=== PATIENT | female | born 1960 | race Caucasian/White ===

== ENCOUNTER → 2017-05-25 | Outpatient (CLI) | payer BC ==
[~2017-05-25] MED LIST: CEPH500C PO; ESTR1TAB35 PO; ESTR1TAB66 PO; FRSM20T PO; HYDR12.570 GT; HYDR1TAB PO; LOSA-35 PO; LSRT50T PO; MMT17NA NSEACH; OXYC-12 PO; POTA10TA PO
--- NOTE | 2017-05-25 19:10 | Diagnostic Imaging Report ---
INDICATION: Screening. The current study was also evaluated with a Computer Aided Detection (CAD) system. Comparison made with prior examinations of 01/25/16, 12/25/2014, and 10/18/2012. FINDINGS: There is a moderate amount of residual fibroglandular tissue bilaterally. There is no dominant mass, spiculated lesion, or suspicious calcification identified. The skin, nipples, and axillae are unremarkable. IMPRESSION: Negative. ACR BI-RADS Category 1: Negative. Result letter will be mailed to the patient. Note: At least 10% of breast cancer is not imaged by mammography. Dictated by: Dictated on workstation # [id number]
== END ==
LOC: RAD 08:08
PROVIDERS: ATTEND Family Medicine
DX: Z12.31 Encounter for screening mammogram for malignant neoplasm of breast (principal)
CPT/HCPCS: 77067

== ENCOUNTER → 2018-08-24 | Outpatient (CLI) | payer BC ==
[~2018-08-24] MED LIST changes: +ALOG1TAB8; +ATOR40TA PO; +HYDR-4226 PO; +SULF1TAB35 PO
--- NOTE | 2018-08-24 18:29 | Diagnostic Imaging Report ---
INDICATION: Routine screening. COMPARISON is made with prior mammogram from 05/25/2017 and 01/25/2016. TECHNIQUE: 2-D and 3-D bilateral screening mammography was performed with CAD. FINDINGS: Scattered fibronodular densities are identified bilaterally. Both breasts demonstrate a fibronodular parenchymal pattern, similar to prior exams. No new mass or malignant appearing microcalcifications are detected. The axillae are unremarkable. IMPRESSION: BI-RADS category 2. No mammographic features suspicious for malignancy are identified. ACR BI-RADS Category 2: Benign findings. Result letter will be mailed to the patient. Note: At least 10% of breast cancer is not imaged by mammography. Dictated by: Dictated on workstation # [id number]
== END ==
LOC: RAD 13:19
PROVIDERS: ATTEND Nurse Practitioner Family
DX: Z12.31 Encounter for screening mammogram for malignant neoplasm of breast (principal)
CPT/HCPCS: 77067

== ENCOUNTER 2018-09-13 06:32 | Outpatient (CLI) | payer BC ==
[~2018-09-13] VITALS: Ht 170.2 cm; Wt 95.7 kg
[2018-09-13] MEDS ORDERED: ROSU5TAB12 PO (09:55)
[2018-09-13] MEDS ORDERED: ESTR1TAB24 PO (09:55)
[2018-09-13] MEDS ORDERED: LOSA1TAB23 PO (09:55)
[2018-09-13] MEDS ORDERED: FURO40TA4 PO (09:55)
[2018-09-13] MEDS ORDERED: POTA10TA36 PO (09:55)
== END 2018-09-13 10:05 | disposition home or self-care (01) ==
LOC: PREOP 06:32
PROVIDERS: ATTEND Surgery
DX: Z01.818 Encounter for other preprocedural examination (principal)

== ENCOUNTER 2018-09-14 10:07 | Day surgery (SDC) | payer BC ==
[~2018-09-14] VITALS: Ht 170.2 cm; Wt 95.7 kg
[~2018-09-14 10:07] MED LIST changes: +ESTR1TAB24 PO; +FURO40TA4 PO; +LOSA1TAB23 PO; +POTA10TA36 PO; +ROSU5TAB12 PO
--- OUTSIDE RECORDS SUMMARY | 2018-09-14 10:10 | XMS REPORT | Continuity of Care Document ---
Author Author [facility] Organization [facility] Address Unknown Phone Unavailable Allergies Active Description Code Type Severity Reaction Onset Reported/Identified Relationship to Patient Clinical Status Yes Penicillins [id number] Drug Allergy Mild N/A 10/05/2011 Medications There is no data. Problems Date Dx Coded Attending Type Code Diagnosis Diagnosed By 10/05/2011 Ot 848.41 SPRAIN STERNOCLAVICULAR 10/05/2011 Ot 959.2 SHLDR/UPPER ARM INJ NOS 10/05/2011 Ot E000.8 OTHER EXTERNAL CAUSE STATUS 10/05/2011 Ot E849.0 ACCIDENT IN HOME 10/05/2011 Ot E928.9 ACCIDENT NOS 07/25/2013 LURDES DPM, YESSENIA Q Ot 735.0 HALLUX VALGUS 07/25/2013 LURDES DPM, YESSENIA Q Ot 754.52 METATARSUS PRIMUS VARUS 12/25/2014 Ot 611.71 12/25/2014 Ot 753.12 12/25/2014 Ot V76.12 12/25/2014 LURDES DPM, YESSENIA Q Ot 735.0 12/25/2014 LURDES DPM, YESSENIA Q Ot 754.52 12/25/2014 LURDES DPM, YESSENIA Q Ot V72.81 12/25/2014 LURDES DPM, YESSENIA Q Ot V74.8 12/25/2014 Ot 611.71 12/25/2014 Ot 753.12 12/25/2014 Ot V76.12 12/25/2014 LURDES DPM, YESSENIA Q Ot 735.0 12/25/2014 LURDES DPM, YESSENIA Q Ot 754.52 12/25/2014 LURDES DPM, YESSENIA Q Ot V72.81 12/25/2014 LURDES DPM, YESSENIA Q Ot V74.8 01/05/2015 FABI BELTRAN Ot V76.12 01/22/2015 SOFIA GRIER DO Ot 610.0 01/25/2016 Ot 611.71 MASTODYNIA 01/25/2016 Ot 753.12 POLYCYSTIC KIDNEY, UNSPECIFIED TYPE 01/25/2016 Ot V76.12 OTH SCREEN MAMMO-MALIGN NEOPLASM OF ADRIANNA 01/25/2016 LURDES DPM, YESSENIA Q Ot 735.0 HALLUX VALGUS 01/25/2016 LURDES DPM, YESSENIA Q Ot 754.52 METATARSUS PRIMUS VARUS 01/25/2016 LURDES DPM, YESSENIA Q Ot V72.81 [id number] CARDIOVASCULAR 01/25/2016 LURDES DPM, YESSENIA Q Ot V74.8 SCREEN-BACTERIAL DIS NEC 01/25/2016 FABI BELTRAN LIGHT OUT EXAMINER Ot V76.12 OTH SCREEN MAMMO-MALIGN NEOPLASM OF ADRIANNA 01/25/2016 SOFIA GRIER DO Ot 610.0 SOLITARY CYST OF BREAST 01/28/2016 SOFIA GRIER DO Ot Z12.31 ENCNTR SCREEN MAMMOGRAM FOR MALIGNANT NE 02/06/2016 SOFIA GRIER DO S Ot Z12.31 ENCNTR SCREEN MAMMOGRAM FOR MALIGNANT NE 02/07/2016 FABI BELTRANP Ot R92.8 OTH ABN AND INCONCLUSIVE FINDINGS ON DX 02/26/2016 RINA BELTRANSA Garcia LIGHT OUT EXAMINER Ot R92.8 OTH ABN AND INCONCLUSIVE FINDINGS ON DX 07/16/2016 SOFIA GRIER DO Ot N28.1 CYST OF KIDNEY, ACQUIRED 07/17/2016 SOFIA GRIER DO S Ot N28.1 CYST OF KIDNEY, ACQUIRED 07/17/2016 Ot 611.71 MASTODYNIA 07/17/2016 Ot 753.12 POLYCYSTIC KIDNEY, UNSPECIFIED TYPE 07/17/2016 Ot V76.12 OTH SCREEN MAMMO-MALIGN NEOPLASM OF ADRIANNA 07/17/2016 LURDES DPM, YESSENIA Q Ot 735.0 HALLUX VALGUS 07/17/2016 LURDES DPM, YESSENIA Q Ot 754.52 METATARSUS PRIMUS VARUS 07/17/2016 LURDES DPM, YESSENIA Q Ot V72.81 [id number] CARDIOVASCULAR 07/17/2016 LURDES DPM, YESSENIA Q Ot V74.8 SCREEN-BACTERIAL DIS NEC 07/17/2016 FABI BELTRAN LIGHT OUT EXAMINER Ot V76.12 OTH SCREEN MAMMO-MALIGN NEOPLASM OF ADRIANNA 07/17/2016 SCHUYLER GRIER DOLINE S Ot 610.0 SOLITARY CYST OF BREAST 07/17/2016 CHERRIE EWING SOFIA S Ot Z12.31 ENCNTR SCREEN MAMMOGRAM FOR MALIGNANT NE 07/17/2016 THOMASJUSTOBAMBICAMILLAFABI LIGHT OUT EXAMINER Ot R92.8 OTH ABN AND INCONCLUSIVE FINDINGS ON DX 07/17/2016 SCHUYLER GRIER DOLINE S Ot N28.1 CYST OF KIDNEY, ACQUIRED 07/22/2016 CHERRIE EWING SOFIA S Ot N28.1 CYST OF KIDNEY, ACQUIRED 07/30/2016 CHERRIE EWING SOFIA S Ot N28.1 CYST OF KIDNEY, ACQUIRED 05/25/2017 Ot V76.12 OTH SCREEN MAMMO-MALIGN NEOPLASM OF ADRIANNA 05/25/2017 LURDES DPM, YESSENIA Q Ot 735.0 HALLUX VALGUS 05/25/2017 LURDES DPM, YESSENIA Q Ot 754.52 METATARSUS PRIMUS VARUS 05/25/2017 LURDES DPM, YESSENIA Q Ot V72.81 [id number] CARDIOVASCULAR 05/25/2017 LURDES DPM, YESSENIA Q Ot V74.8 SCREEN-BACTERIAL DIS NEC 05/25/2017 RUBY FABI Garcia LIGHT OUT EXAMINER Ot V76.12 OTH SCREEN MAMMO-MALIGN NEOPLASM OF ADRIANNA 05/25/2017 SCHUYLER GRIER DOLINE S Ot 610.0 SOLITARY CYST OF BREAST 05/25/2017 NOALAUROAGUSTIN SOFIA S Ot Z12.31 ENCNTR SCREEN MAMMOGRAM FOR MALIGNANT NE 05/25/2017 RUBY FABI Garcia LIGHT OUT EXAMINER Ot R92.8 OTH ABN AND INCONCLUSIVE FINDINGS ON DX 05/25/2017 AKOSUA RGIER DOQUELINE S Ot N28.1 CYST OF KIDNEY, ACQUIRED 05/26/2017 CHERRIE AKOSUASOFIA S Ot Z12.31 ENCNTR SCREEN MAMMOGRAM FOR MALIGNANT NE 06/03/2017 SCHUYLER GRIER DOLINE S Ot Z12.31 ENCNTR SCREEN MAMMOGRAM FOR MALIGNANT NE 06/10/2017 SOFIA GRIER DO Ot Z12.31 ENCNTR SCREEN MAMMOGRAM FOR MALIGNANT NE 05/23/2018 ELVA SONG APRN Ot M79.605 PAIN IN LEFT LEG 05/23/2018 ELVA SONG APRN Ot N39.0 URINARY TRACT INFECTION, SITE NOT SPECIF 05/23/2018 ELVA SONG APRN Ot S82.302A UNSP FRACTURE OF LOWER END OF LEFT TIBIA 05/23/2018 ELVA SONG APRN Ot S92.425A NONDISP FX OF DISTAL PHALANX OF LEFT GRE 05/23/2018 ELVA SONG APRN Ot W01.0XXA FALL SAME LEV FROM SLIP/TRIP W/O STRIKE 05/23/2018 ELVA SONG APRN Ot Y92.[address] [facility] 05/23/2018 ELVA SONG APRN Ot Z88.0 ALLERGY STATUS TO PENICILLIN 05/26/2018 ELVA SONG APRN Ot M79.605 PAIN IN LEFT LEG 05/26/2018 ELVA SONG APRN Ot N39.0 URINARY TRACT INFECTION, SITE NOT SPECIF 05/26/2018 ELVA SONG APRN Ot S82.302A UNSP FRACTURE OF LOWER END OF LEFT TIBIA 05/26/2018 ELVA SONG APRN Ot S92.425A NONDISP FX OF DISTAL PHALANX OF LEFT GRE 05/26/2018 ELVA SONG APRN Ot W01.0XXA FALL SAME LEV FROM SLIP/TRIP W/O STRIKE 05/26/2018 ELVA SONG APRN Ot Y92.[address] IN [facility] 05/26/2018 ELVA SONG APRN Ot Z88.0 ALLERGY STATUS TO PENICILLIN 08/25/2018 CECILIA NDIAYE APRN Ot Z12.31 ENCNTR SCREEN MAMMOGRAM FOR MALIGNANT NE Procedures There is no data. Results Test Result Range Complete urinalysis with reflex to culture - 05/23/18 13:10 Urine color determination YELLOW NRG Urine clarity determination CLEAR NRG Urine pH measurement by test strip 5 5-9 Specific gravity of urine by test strip 1.020 1.016- 1.022 Urine protein assay by test strip, semi-quantitative 1+ NEGATIVE Urine glucose detection by automated test strip NEGATIVE NEGATIVE Erythrocytes detection in urine sediment by light microscopy 1+ NEGATIVE Urine ketones detection by automated test strip NEGATIVE NEGATIVE Urine nitrite detection by test strip POSITIVE NEGATIVE Urine total bilirubin detection by test strip NEGATIVE NEGATIVE Urine urobilinogen measurement by automated test strip (mass/volume) NORMAL NORMAL Urine leukocyte esterase detection by dipstick 2+ NEGATIVE Automated urine sediment erythrocyte count by microscopy (number/high power field) NONE NRG Automated urine sediment leukocyte count by microscopy (number/high power field ) [HPF] NRG Bacteria detection in urine sediment by light microscopy LARGE NRG Squamous epithelial cells detection in urine sediment by light microscopy 25-50 NRG Crystals detection in urine sediment by light microscopy NONE NRG Casts detection in urine sediment by light microscopy NONE NRG Mucus detection in urine sediment by light microscopy NEGATIVE NRG Complete urinalysis with reflex to culture YES NRG Bacterial urine culture - 05/23/18 13:10 Bacterial urine culture [id number] NRG COLONY COUNT >100,000/ML NRG RML Sensitivity Panel - 05/23/18 13:10 Gentamicin susceptibility test by minimum inhibitory concentration < = NRG Trimethoprim/sulfamethoxazole susceptibility test by minimum inhibitoryconcentration > NRG Levofloxacin susceptibility test by minimum inhibitory concentration <= NRG Ampicillin susceptibility test by minimum inhibitory concentration < = NRG Cefazolin susceptibility test by minimum inhibitory concentration < = NRG Ceftriaxone susceptibility test by minimum inhibitory concentration <= NRG Ciprofloxacin susceptibility test by minimum inhibitory concentration <= NRG Meropenem susceptibility test by minimum inhibitory concentration < = NRG Nitrofurantoin susceptibility test by minimum inhibitory concentration <= NRG Amoxicillin and clavulanate potassium susc [facility] <= NRG Encounters ACCT No. Visit Date/Time Discharge Status Pt. Type Provider Facility Loc./Unit Complaint [id number] 08/24/2018 13:19:00 08/24/2018 23:59:59 CLS Outpatient CECILIA NDIAYE REPAIR MECHANIC [facility] RAD ANNUAL SCREENING [id number] 05/23/2018 12:52:00 05/23/2018 17:10:00 DIS Emergency ELVA SONG REPAIR MECHANIC [facility] ER FALL/LEG PAIN [id number] 05/25/2017 08:08:00 05/25/2017 23:59:59 CLS Outpatient SOFIA GRIER DO [facility] RAD SCREENING [id number] 07/16/2016 12:11:00 07/16/2016 23:59:59 CLS Outpatient SOFIA GRIER DO S [facility] RAD BILAT RENAL CYSTS [id number] 02/06/2016 07:49:00 02/06/2016 23:59:59 CLS Outpatient FABI BELTRAN LIGHT OUT EXAMINER [facility] RAD L BREAST ASYMMETRY [id number] 01/25/2016 10:15:00 01/25/2016 23:59:59 CLS Outpatient SOFIA GRIER DO S [facility] RAD SCREENING [id number] 01/04/2015 08:51:00 01/04/2015 23:59:59 CLS Outpatient SOFIA GRIER DO S [facility] RAD LEFT BREAST ASYMETRY [id number] 12/25/2014 10:13:00 12/25/2014 23:59:59 CLS Outpatient FABI BELTRAN LIGHT OUT EXAMINER [facility] RAD SCREENING [id number] 07/25/2013 07:59:00 07/25/2013 15:30:00 DIS Outpatient LURDES DPM, YESSENIA Q [facility] SDC RIGHT BUNION [id number] 07/20/2013 10:47:00 07/20/2013 23:59:59 CLS Outpatient LURDES DPM, YESSENIA Q [facility] PREOP BUNION RIGHT FOOT [id number] 07/11/2013 08:36:00 07/11/2013 23:59:59 CLS Outpatient [id number] 09/14/2018 11:00:00 PEN Preadmit LAMB DO, BLANCA D [facility] ENDO SCREENING [id number] 10/18/2012 11:24:00 Document Registration [id number] 10/05/2011 04:15:00 Document Registration [id number] 09/15/2011 15:30:00 Document Registration [id number] 03/11/2011 14:00:00 Document Registration [id number] 01/04/2015 08:52:06 ACT Document Registration 01/201809/12/2018 06:07:22 ACT Outpatient Orender, Sofia S.
[2018-09-14] MEDS ORDERED: LACTATED RINGERS 1,000 ML IV STA (10:19)
[2018-09-14] MEDS ORDERED: LACTATED RINGERS 1,000 ML IV ONE (10:20)
--- NOTE | 2018-09-14 10:23 | Progress Note-Pre Operative ---
Pre-Operative Progress Note H&P Reviewed The H&P was reviewed, patient examined and no changes noted. Date Seen by Provider: Sep 14, 2018 Time Seen by Provider: 10: Date H&P Reviewed: Sep 14, 2018 Time H&P Reviewed: : Pre-Operative Diagnosis: screening colonoscopy BLANCA LAMB DO Sep 14, 2018 10:23
[2018-09-14 10:30] VITALS: BP 122/82
[2018-09-14] MEDS ORDERED: MIDAZOLAM 2 MG/2 ML (VERSED) VIAL ONE (11:15)
[2018-09-14] MEDS ORDERED: PROPOFOL INJECTION 50 ML IV ONE (11:15)
--- NOTE | 2018-09-14 11:49 | Progress Note-Post Operative ---
Post-Operative Progess Note Surgeon (s)/Greaser Operator (s) Surgeon BLANCA LAMB DO Greaser Operator: na Pre-Operative Diagnosis screening colonoscopy Post-Operative Diagnosis sigmoid polyp, diverticulosis Procedure & Operative Findings Date of Procedure 09/14/18 Procedure Performed/Findings colonoscopy c hot bx polypectomy x 1 Anesthesia Type per hair or beauty salon manager Estimated Blood Loss Estimated blood loss (mL): none Specimens/Packing Specimens Removed sigmoid polyp BLANCA LAMB DO Sep 14, 2018 11:49
--- NOTE | 2018-09-14 11:51 | Discharge Inst-Simple/Standard ---
Discharge Inst-Standard Patient Instructions/Follow Up Plan of Care/Instructions/FU: 2 weeks sandra Activity as Tolerated: Yes Discharge Diet: Regular Diet (high fiber) BLANCA LAMB DO Sep 14, 2018 11:51
[2018-09-14 11:55] VITALS: BP 96/59
[2018-09-14 12:25] VITALS: BP 97/75
[2018-09-14 12:30] VITALS: BP 97/75
--- NOTE | 2018-09-14 16:11 | Anesthesia-General Post-Op ---
MAC Patient Condition Mental Status/LOC: Same as Preop Cardiovascular: Satisfactory Nausea/Vomiting: Absent Respiratory: Satisfactory Pain: Controlled Complications: Absent Post Op Complications Complications None Follow Up Care/Instructions Patient Instructions None needed. Anesthesiology Discharge Order Discharge Order Patient is doing well, no complaints, stable vital signs, no apparent adverse anesthesia problems. No complications reported per nursing. ILDA BARTON CRNA Sep 14, 2018 16:10
--- NOTE | 2018-09-14 17:03 | OPERATIVE REPORT ---
DATE OF SERVICE: 09/14/2018 PREOPERATIVE DIAGNOSIS: Screening colonoscopy. POSTOPERATIVE DIAGNOSIS: Diverticulosis, sigmoid colon polyp. PROCEDURE: Colonoscopy with hot biopsy polypectomy. SURGEON: Blanca Reid DO ANESTHESIA: Per EMPLOYMENT RECRUITER. ESTIMATED BLOOD LOSS: None. COMPLICATIONS: None. INDICATIONS: The patient is a 58-year-old female due for screening colonoscopy. She understands the risks and benefits of procedure and wished to proceed with procedure. Consent was signed in the chart. PROCEDURE IN DETAIL: The patient was taken to the endoscopy suite, placed in left lateral recumbent position. Timeout was performed. Digital rectal exam was performed. There were no palpable polyps, masses or ulcerations. The scope was inserted in the rectum and advanced all the way to the cecum with minimal difficulty. Prep was adequate. There were no polyps, masses or ulceration of the cecum, ascending, transverse, descending and sigmoid colon. In the sigmoid colon, minimal amount of diverticulosis present. Also, a small polyp in the sigmoid colon, which hot biopsy polypectomy was performed. Scope was continuously retracted back to the rectum, where it was also retroflexed just noting some internal hemorrhoids. No other pathology. Scope was returned to its normal position, slowly withdrawn until completely removed. The patient tolerated the procedure well without any complications. She was taken to recovery room in stable condition. RECOMMENDATIONS: The patient will need repeat colonoscopy in 5 years. She will follow up in the office to discuss biopsy results and findings. The patient is also recommended high fiber diet. Job ID: [id number] DocumentID: [id number] Dictated Date: 09/14/2018 11:53:16 Casting Repairer Date: 09/14/2018 17:02:26 Dictated By: BLANCA REID DO
== END 2018-09-14 12:30 | disposition home or self-care (01) ==
LOC: ENDO 10:07
PROVIDERS: ATTEND Surgery
DX: Z12.11 Encounter for screening for malignant neoplasm of colon (principal); K63.5 Polyp of colon; K57.30 Diverticulosis of large intestine without perforation or abscess without bleeding; E11.9 Type 2 diabetes mellitus without complications; I10 Essential (primary) hypertension; E66.9 Obesity, unspecified; Z68.33 Body mass index [BMI] 33.0-33.9, adult; Z79.899 Other long term (current) drug therapy
CPT/HCPCS: 82962; 88305

== ENCOUNTER → 2019-11-15 | Outpatient (CLI) | payer BC ==
[~2019-11-15] MED LIST changes: -ROSU5TAB12 PO; +ROSU5TAB13 PO
--- NOTE | 2019-11-15 11:08 | Diagnostic Imaging Report ---
INDICATION: Screening The current study was also evaluated with a Computer Aided Detection (CAD) system. 3-D Tomographic imaging was also performed. Comparison made with prior examination of 08/24/2018, 05/25/2017, 01/25/2016. FINDINGS: There are scattered fibroglandular densities bilaterally. There are benign type calcifications in both breasts. There is no new dominant mass, spiculated lesion or suspicious calcification identified. Skin, nipples and axillae are unremarkable. IMPRESSION: Category 2 benign. ACR BI-RADS Category 2: Benign findings. Result letter will be mailed to the patient. Note: At least 10% of breast cancer is not imaged by mammography. Dictated by: Dictated on workstation # [id number]
== END ==
LOC: RAD 09:58
PROVIDERS: ATTEND Family Medicine
DX: Z12.31 Encounter for screening mammogram for malignant neoplasm of breast (principal)
CPT/HCPCS: 77067

== ENCOUNTER → 2021-02-11 | Outpatient (CLI) | payer BC ==
--- NOTE | 2021-02-11 12:31 | Diagnostic Imaging Report ---
Indication: Routine screening. Comparison is made prior mammogram 11/15/2019 and 08/24/2018. 2-D and 3-D bilateral screening mammography was performed with CAD. Scattered fibroglandular densities are identified bilaterally. There are numerous benign nodule scattered throughout both breasts which appears stable. There are benign calcifications in both breasts. No spiculated mass or malignant appearing microcalcifications are seen. Axillae are unremarkable. IMPRESSION: BI-RADS Category 2 No mammographic features suspicious for malignancy are identified. ACR BI-RADS Category 2: Benign findings. Result letter will be mailed to the patient. Note: At least 10% of breast cancer is not imaged by mammography. Dictated by: Dictated on workstation # [id number]
== END ==
LOC: RAD 10:15
PROVIDERS: ATTEND Family Medicine
DX: Z12.31 Encounter for screening mammogram for malignant neoplasm of breast (principal)
CPT/HCPCS: 77063; 77067

== ENCOUNTER → 2023-08-27 | Outpatient (CLI) | payer OTHER ==
[~2023-08-27] MED LIST changes: +POTA-177 PO; -POTA10TA36 PO; -SULF1TAB35 PO; +SULF1TAB38 PO
--- NOTE | 2023-08-27 09:56 | Diagnostic Imaging Report ---
INDICATION: Routine screening. Comparison is made with prior mammogram from 02/11/2021 and 11/15/2019. 2-D and 3-D bilateral screening mammography was performed with CAD. Scattered fibroglandular densities are identified bilaterally. There are benign appearing nodular densities in both breasts which appears stable. No spiculated mass or malignant-appearing microcalcifications are seen. There are benign calcifications bilaterally. Axillae are unremarkable. IMPRESSION: No mammographic features suspicious for malignancy are identified. ACR BI-RADS Category 2: Benign findings. Result letter will be mailed to the patient. Note: At least 10% of breast cancer is not imaged by mammography. BI-RADS Category 2 Dictated by: Dictated on workstation # [id number]
== END ==
LOC: RAD 07:43
PROVIDERS: ATTEND Family Medicine
DX: Z12.31 Encounter for screening mammogram for malignant neoplasm of breast (principal)
CPT/HCPCS: 77063; 77067